=== PATIENT | female | born 1955 | race Asian ===

== ENCOUNTER 2017-04-29 08:24 | Emergency (ER) | payer MEDICAID ==
[~2017-04-29] VITALS: Ht 160 cm; Wt 83.5 kg
[2017-04-29] MEDS ORDERED: ALBUTEROL SULFATE 2.5 MG/0.5 ML NEB SOLUTION NEB ONE ×2 (08:30→09:15)
[2017-04-29] MEDS ORDERED: 0.9% SODIUM CHLORIDE 5 ML NEB SOLUTION NEB ONE (08:44)
[2017-04-29] MEDS ORDERED: MethylPREDNISolone SOD SUCC 125 MG/2 ML VIAL IM ONE (09:15)
[2017-04-29 10:26] VITALS: BP 140/90
== END 2017-04-29 11:07 | disposition home or self-care (01) ==
LOC: EMS 08:24
DX: J45.909 Unspecified asthma, uncomplicated (principal)
CPT/HCPCS: 94640; 96372; 99284; J2930; J7613

== ENCOUNTER 2017-05-21 03:22 | Emergency (ER) | payer MEDICAID ==
[~2017-05-21] VITALS: Ht 162.6 cm; Wt 84.1 kg
[2017-05-21] MEDS ORDERED: ADV250 IH (03:26)
[2017-05-21] MEDS ORDERED: ALBUTEROL SULFATE 5 MG/ML 20 ML NEB SOLN [BULK] NEB ONE ×2 (03:30→05:00)
[2017-05-21] MEDS ORDERED: IPRATROPIUM BROMIDE 0.5 MG/2.5 ML NEB SOLUTION NEB ONE (03:30)
[2017-05-21] MEDS ORDERED: 0.9% SODIUM CHLORIDE 5 ML NEB SOLUTION NEB ONE ×2 (03:34→05:20)
[2017-05-21] MEDS ORDERED: MethylPREDNISolone SOD SUCC 125 MG/2 ML VIAL IVP ONE (04:15)
[2017-05-21] MEDS ORDERED: MethylPREDNISolone SOD SUCC 125 MG/2 ML VIAL IM ONE (04:15)
[2017-05-21 04:24] LABS: BASOPHILS # (AUTO) 0.08 K/uL (0.00-0.20); BASOPHILS % (AUTO) 0.7 % (0.0-2.0); EOSINOPHILS # (AUTO) 0.95 K/uL (0.00-0.70); EOSINOPHILS % (AUTO) 8.32 % (1.0-6.0); HEMATOCRIT 40.2 % (36-46); HEMOGLOBIN 13.2 g/dL (12.0-16.0); LYMPHOCYTES # (AUTO) 4.7 K/uL (1.0-4.8); LYMPHOCYTES % (AUTO) 40.7 % (22.0-44.0); MEAN CORPUSCULAR HEMOGLOBIN 31.9 pg (26.0-34.0); MEAN CORPUSCULAR HGB CONC 32.7 G/dL (31.0-37.0); MEAN CORPUSCULAR VOLUME 98 fL (80-100); MONOCYTES # (AUTO) 0.7 K/uL (0.1-1.0); MONOCYTES % (AUTO) 5.6 % (2.0-9.0); NEUTROPHILS # (AUTO) 5.1 K/uL (1.8-7.7); NEUTROPHILS % (AUTO) 44.6 % (40.0-70.0); PLATELET COUNT (AUTO) 334 K/uL (150-450); RED BLOOD CELL COUNT(AUTO) 4.12 MIL/uL (4.00-5.20); RED CELL DISTRIBUTION WIDTH 12.3 % (11.5-14.5); WHITE BLOOD COUNT (AUTO) 11.5 K/uL (4.5-11.0)
[2017-05-21 04:28] LABS: CALCIUM, TOTAL 9.2 mg/dL (8.8-10.5); CREATININE 1.25 mg/dL (0.60-1.30); POTASSIUM 3.8 mmol/L (3.5-5.1)
[2017-05-21 04:44] LABS: ALBUMIN 3.7 g/dL (3.4-5.0); BILIRUBIN,TOTAL 0.3 mg/dL (0.1-1.0); TOTAL PROTEIN, SERUM 7.9 g/dL (6.4-8.2)
[2017-05-21 06:05] LABS: INFLUENZA TYPE B NEGATIVE FOR TYPE B (NEGATIVE)
[2017-05-21 06:20] VITALS: BP 110/65
== END 2017-05-21 06:17 | disposition home or self-care (01) ==
LOC: EMS 03:22
DX: J45.901 Unspecified asthma with (acute) exacerbation (principal)
CPT/HCPCS: 36415; 71010; 80053; 84484; 85025; 87804; 93005; 94644; 94645; 96374; 99285; J2930; J7611

== ENCOUNTER 2017-06-13 18:56 | Emergency (ER) | payer MEDICAID ==
[~2017-06-13] VITALS: Ht 160 cm; Wt 84.0 kg
[~2017-06-13 18:56] MED LIST: ADV250 IH
[2017-06-13] MEDS ORDERED: ALBUTEROL SULFATE 2.5 MG/0.5 ML NEB SOLUTION NEB ONE (21:21)
[2017-06-13] MEDS ORDERED: 0.9% SODIUM CHLORIDE 5 ML NEB SOLUTION NEB ONE (21:26)
[2017-06-13 21:30] VITALS: BP 142/95
[2017-06-13] MEDS ORDERED: PredniSONE 20 MG TABLET PO ONE (21:30)
== END 2017-06-13 22:05 | disposition home or self-care (01) ==
LOC: EMS 19:04
DX: J45.909 Unspecified asthma, uncomplicated (principal)
CPT/HCPCS: 94640; 99283; J7512; J7613